=== PATIENT | male | born 1975 | race Asian ===

== ENCOUNTER 2019-04-02 12:24 | Day surgery (SDC) | payer OTHER ==
[2019-03-28 13:54] VITALS: BMI 26.5
[2019-04-02] MEDS ORDERED: MIDAZOLAM HCL 2 MG/2 ML SINGLE DOSE VIAL ONE (15:26)
[2019-04-02] MEDS ORDERED: fentaNYL CITRATE 250 MCG/5 ML VIAL ONE (15:26)
[2019-04-02] MEDS ORDERED: PROPOFOL 20 ML ONE ×2 (15:27)
[2019-04-02] MEDS ORDERED: DEXAMETHASONE SOD PHOSPHATE 4 MG/1 ML VIAL ONE (15:47)
[2019-04-02] MEDS ORDERED: KETOROLAC TROMETHAMINE 30 MG/1 ML VIAL ONE (15:47)
--- NOTE | 2019-04-02 15:56 | OP ---
Operative Note - Note: Operative Date: 04/02/19 Pre-Operative Diagnosis: Right renal stone Operation: Right ESWL Findings: 5 mm mid pole Right renal stone Post-Operative Diagnosis: Same as Pre-op Surgeon: Thierry Truong Anesthesia: Fractional Estimated Blood Loss (mls): 0 Drains, Volume Out (mls): 0 Operative Report Dictated: Yes
[2019-04-02 16:35] VITALS: TEMP 97.8
[2019-04-02 17:16] VITALS: BP 142/70; PULSE 60
--- NOTE | 2019-04-02 17:48 | OP ---
DATE OF OPERATION: 04/02/2019 PREOPERATIVE DIAGNOSIS: Right renal stone. POSTOPERATIVE DIAGNOSIS: Right renal stone. PROCEDURE: Right extracorporeal shock-wave lithotripsy. ATTENDING: Noreen Weinberg MD ANESTHESIA: Fractional. DESCRIPTION OF PROCEDURE: Patient was brought in the operating room and placed in supine position on the operating room table. Ultrasonography and fluoroscopy were then performed. A 5-mm right midpole stone was identified. Anesthesia and preoperative antibiotics were then administered. Shock-wave lithotripsy was then performed. No complications were noted. The patient tolerated the procedure very well. NOREEN WEINBERG M.D. /[id number]
== END 2019-04-02 17:53 | disposition home or self-care (01) ==
LOC: JASU-SURG 12:24
PROVIDERS: ATTEND Urology
PROC: 0TF3XZZ Fragmentation in Right Kidney Pelvis, External Approach (ICD-10-PCS; principal; 2019-04-02 14:45)
DX: N20.0 Calculus of kidney (principal)

== ENCOUNTER 2024-09-10 05:33 | Day surgery (SDC) | payer OTHER ==
[2024-09-06 18:16] VITALS: BMI 28.7
[2024-09-10] MEDS ORDERED: MIDAZOLAM HCL 2 MG/2 ML SINGLE DOSE VIAL ONE (12:38)
[2024-09-10] MEDS ORDERED: ONDANSETRON 4 MG/2 ML VIAL ONE (13:44)
[2024-09-10] MEDS: ONDANSETRON 4 MG/2 ML VIAL IVPUSH ONE (13:45)
[2024-09-10 14:38] VITALS: PULSE 68; RESP 20; TEMP 97.3
[2024-09-10 18:19] VITALS: BP 119/85
== END 2024-09-10 15:20 | disposition home or self-care (01) ==
LOC: JASU-SURG 05:33
PROVIDERS: ATTEND Urology
PROC: 00HU3MZ Insertion of Neurostimulator Lead into Spinal Canal, Percutaneous Approach (ICD-10-PCS; principal; 2024-09-10 13:00)
DX: M96.1 Postlaminectomy syndrome, not elsewhere classified (principal); G89.4 Chronic pain syndrome; M54.16 Radiculopathy, lumbar region; Z53.09 Procedure and treatment not carried out because of other contraindication
CPT/HCPCS: 63650; C1897